=== PATIENT | male | born 1965 | race Asian ===

== ENCOUNTER 2019-03-25 07:30 | Inpatient (IN) | payer MEDICAID ==
[2019-03-25] MEDS ORDERED: Aspirin 81mg Chewable Tab PO STA (07:44)
[2019-03-25] MEDS ORDERED: Aspirin 81mg Chewable Tab ONE (07:47)
[2019-03-25 08:01] LABS: % BASOPHILS 0.3 % (0.0-2.0); % EOSINOPHILS 3.5 % (0.0-5.0); % LYMPHOCYTES 27.1 % (20.0-50.0); % MONOCYTES 6.3 % (2.0-10.0); % NEUTROPHILS 62.8 % (40.0-80.0); EOSINOPHILE ABSOLUTE 0.2 Th/cmm (0.1-0.4); HEMATOCRIT 37.7 % (41.0-60); HEMOGLOBIN 12.5 gm/dL (12-16); LYMPHOCYTE ABSOLUTE 1.2 Th/cmm (1.5-3.0); MEAN CELL VOLUME 84.8 fl (80-99); MEAN CORPUSCULAR HEMOGLOBIN 28.2 pg (26.0-30.0); MEAN CORPUSCULAR HGB CONC 33.3 pg (28.0-36.0); MEAN PLATELET VOLUME 6.8 fl; MONOCYTE ABSOLUTE 0.3 Th/cmm (0.3-1.0); NEUTROPHILE ABSOLUTE 2.7 Th/cmm (1.8-8.0); PLATELET COUNT 323 Th/cmm (150-400); RED BLOOD COUNT 4.45 Mil/cmm (4.30-5.70); WHITE BLOOD COUNT 4.4 Th/cmm (4.8-10.8)
[2019-03-25 08:08] LABS: PROTHROMBIN TIME (TEST) 10.4 SECONDS (9.5-11.5)
[2019-03-25 08:16] LABS: ALB/GLOB RATIO 1.9 (1.0-1.8); ALBUMIN 4.1 gm/dL (4.2-5.5); ALKALINE PHOSPHATASE 68 U/L (34-104); ANION GAP 12.6 (7.0-16.0); BILIRUBIN,TOTAL 0.4 mg/dL (0.3-1.0); BUN - UREA NITROGEN 31 mg/dL (7-25); CALCIUM SERUM 9.2 mg/dL (8.6-10.3); CARBON DIOXIDE 28.4 mEq/L (21.0-31.0); CHLORIDE 101 mEq/L (98-107); CHOLESTEROL 139 mg/dL (<200); CREATININE - SERUM 1.1 mg/dL (0.7-1.3); CREATININE KINASE 50 U/L (30-223); GFR AFRICAN-AMERICAN > 60.0 ml/min (>90); GFR NON AFRICAN-AMERICAN > 60.0 ml/min; GLUCOSE 160 mg/dL (70-105); HDL -HIGH DENSITY LIPOPROTEIN 35 mg/dL (23-92); SGOT 16 U/L (13-39); SGPT/ALT 34 U/L (7-52); SODIUM SERUM 139 mEq/L (136-145); TOTAL PROTEIN,SERUM 6.3 gm/dL (6.0-8.3); TRIGLYCERIDES 133 mg/dL (<150)
[2019-03-25] MEDS ORDERED: Potassium Chloride 20 mEq ER Tab PO ONE ×2 (08:23→08:27)
[2019-03-25 08:28] LABS: DDIMER QUANT < 100 ng/mL (100-400)
--- NOTE | 2019-03-25 09:19 | ED Physician Chart ---
ED Chief Complaint/HPI - Patient Information Date Seen:: 03/25/19 Time Seen:: 07:30 Chief Complaint:: Chest Pain History of Present Illness:: onset x 2 days of intermittent, exertional C/P; pt denies trauma, SOB, H/As, S/T , neck pain, cough, Abd. Pain, A/N/V/D/C, fever, chills, or urinary s/s Allergies:: Allergies Allergy/AdvReac Type Severity Reaction Status Date / Time No Known Allergies Allergy Verified 03/25/19 07:45 Vitals:: Vital Signs - 8 hr 03/25/19 03/25/19 07:30 07:43 Temp 98.2 F 98.3 F HR 74 72 RR 15 13 BP 112/72 112/72 O2 Sat % 97 Historian:: Patient Review:: Nurse's Note Reviewed, Old Chart Reviewed ED Review of Systems - Review of Systems General/Constitutional: No fever, No chills, No weight loss, No weakness, No diaphoresis, No edema, No loss of appetite Skin: No skin lesions, No rash, No bruising Head: No headache, No light-headedness Eyes: No loss of vision, No pain, No diplopia ENT: No earache, No nasal drainage, No sore throat, No tinnitus Neck: No neck pain, No swelling, No thyromegaly, No stiffness, No mass noted Cardio Vascular: No chest pain, No palpitations, No PND, No orthopnea, No edema Pulmonary: No SOB, No cough, No sputum, No wheezing GI: No nausea, No vomiting, No diarrhea, No pain, No melena, No hematochezia, No constipation, No hematemesis G/U: No dysuria, No frequency, No hematuria, No nacturia Musculoskeletal: No bone or joint pain, No back pain, No muscle pain Endocrine: No polyuria, No polydipsia Psychiatric: No prior psych history, No depression, No anxiety, No suicidal ideation, No homicidal ideation, No auditory hallucination, No visual hallucination Hematopoietic: No bruising, No lymphadenopathy Allergic/Immuno: No urticaria, No angioedema Neurological: No syncope, No focal symptoms, Weakness, No paresthesia, No headache, No seizure, No dizziness, No confusion, No vertigo ED Past Medical History - Past Medical History Obtainable: Yes Past Medical History: HTN, CVA/TIA Family History: HTN Social History: Non Smoker, No Alcohol, No Drug Use, Surgical History: None Psychiatricy History: None Medication: Reviewed Family Medical History - Family Member Mother History Unknown: Yes ED Physical Exam - Physical Examination General/Constitutional: Awake, Well-developed, well-nourished, Alert, No distress, GCS 15, Non-toxic appearing, Ambulatory Head: Atraumatic Eyes: Lids, conjuctiva normal, PERRL, EOMI Skin: Nl inspection, No rash, No skin lesions, No ecchymosis, Well hydrated, No lymphadenopathy ENMT: External ears, nose nl, TM canals nl, Nasal exam nl, Lips, teeth, gums nl , Oropharynx nl, Tonsils nl Neck: Nontender, Full ROM w/o pain, No JVD, No nuchal rigidity, No bruit, No mass, No stridor Other Neck comments:: supple; no meningeal signs; no cervical tenderness; no bruits Respiratory: Nl effort/Exclusion, Clear to Auscultation, No Wheeze/Rhonchi/Rales Cardio Vascular: RRR, No murmur, gallop, rubs, NL S1 S2, Carotid/Femoral/Distal pulses equal bilaterally GI: No tenderness/rebounding/guarding, No organomegaly, No hernia, Normal BS's, Nondistended, No mass/bruits, No McBurney tenderness, Rectum exam nl Other GI comments:: no pulsatile masses : No CVA tenderness Extremities: No tenderness or effusion, Full ROM, normal strength in all extremities, No edema, Normal digits & nails Neuro/Psych: Alert/oriented, DTR's symmetric, Normal sensory exam, Normal motor strength, Judgement/insight normal, Mood normal, Normal gait, No focal deficits Misc: Normal back, No paraspinal tenderness ED Labs/Radiology/EKG Results - Lab Results Results: Laboratory Tests 03/25/19 03/25/19 03/25/19 07:45 07:45 07:45 WBC 4.4 L RBC 4.45 Hgb 12.5 Hct 37.7 L MCV 84.8 MCH 28.2 MCHC Differential 33.3 RDW 12.0 Plt Count 323 MPV 6.8 Neutrophils % 62.8 Lymphocytes % 27.1 Monocytes % 6.3 Eosinophils % 3.5 Basophils % 0.3 PT 10.4 INR 1.00 D-Dimer < 100 L Sodium 139 Potassium 3.0 L Chloride 101 Carbon Dioxide 28.4 Anion Gap 12.6 BUN 31 H Creatinine 1.1 Est GFR ( Amer) > 60.0 Est GFR (Non-Af Amer) > 60.0 BUN/Creatinine Ratio 28.2 Glucose 160 H Calcium 9.2 Total Bilirubin 0.4 AST 16 ALT 34 Alkaline Phosphatase 68 Creatine Kinase 50 Troponin I B-Natriuretic Peptide Total Protein 6.3 Albumin 4.1 L Globulin 2.2 Albumin/Globulin Ratio 1.9 H Triglycerides 133 Cholesterol 139 LDL Cholesterol Direct 83 HDL Cholesterol 35 03/25/19 03/25/19 07:45 07:45 WBC RBC Hgb Hct MCV MCH MCHC Differential RDW Plt Count MPV Neutrophils % Lymphocytes % Monocytes % Eosinophils % Basophils % PT INR D-Dimer Sodium Potassium Chloride Carbon Dioxide Anion Gap BUN Creatinine Est GFR ( Amer) Est GFR (Non-Af Amer) BUN/Creatinine Ratio Glucose Calcium Total Bilirubin AST ALT Alkaline Phosphatase Creatine Kinase Troponin I < 0.01 L B-Natriuretic Peptide 7.2 Total Protein Albumin Globulin Albumin/Globulin Ratio Triglycerides Cholesterol LDL Cholesterol Direct HDL Cholesterol Comments:: Reviewed - EKG Interpretations Rate & Rhythm: NSR Comments:: non-specific st-t changes ED Septic Shock - . Is Septic Shock (SBP<90, OR Lactate>4 mmol\L) present?: No - <6hrs of presentation: Vital Signs: Vital Signs - 8 hr 03/25/19 03/25/19 07:30 07:43 Temp 98.2 F 98.3 F HR 74 72 RR 15 13 BP 112/72 112/72 O2 Sat % 97 ED Reassessment (Disposition) - Reassessment Reassessment Condition:: Improved - Diagnosis Diagnosis:: Chest Pain; Unstable Angina; Angina Pectoris; Hypokalemia; Dehydration - Aftercare/Follow up Instructions Aftercare/Follow-Up Instructions:: Counseled pt regarding lab results/diagnosis & need follow up, Counseled pt & family regarding lab results/diagnosis & need follow up - Patient Disposition Discharge/Transfer:: Acute Care w/in this hosp Accepting Physician:: Dr. Rolon Time Called:: 829 Time Responded:: 08:30 Admitted to:: Telemetry Spoke to:: Dr. Rolon Admitting Medical Physician:: Dr. Rolon Condition at Disposition:: Stable, Improved
[2019-03-25 09:30] LABS: URINE SOURCE RANDOM
[2019-03-25 09:32] LABS: URINE BILIRUBIN NEGATIVE (NEGATIVE); URINE BLOOD NEGATIVE (NEGATIVE); URINE GLUCOSE (UA) NEGATIVE (NEGATIVE); URINE KETONE NEGATIVE (NEGATIVE); URINE LEUKOCYTE ESTERASE NEGATIVE (NEGATIVE); URINE NITRATE NEGATIVE (NEGATIVE); URINE PROTEIN NEGATIVE (NEGATIVE); URINE UROBILINOGEN 0.2 E.U./dL (0.2 - 1.0)
[2019-03-25 09:57] LABS: URINE CLARITY CLEAR (CLEAR); URINE COLOR YELLOW; URINE MICROSCOPIC INDICATED? YES
[2019-03-25 10:00] LABS: URINE BACTERIA FEW /hpf (NONE SEEN); URINE EPITHELIAL CELLS NONE SEEN /lpf (FEW); URINE RBC NONE SEEN /hpf (0-5); URINE WBC 0-2 /hpf (0-5)
[2019-03-25] MEDS: Sodium Chloride 0.9% 1,000 ML IV SCH (10:05)
--- NOTE | 2019-03-25 10:21 | Diagnostic Imaging Report ---
CHEST X-RAY: AP view INDICATION: pain COMPARISON: None FINDINGS: There is elevation of the right hemidiaphragm. Chronic lung changes are noted. Increased bibasilar lung markings are noted. No focal consolidation or effusions. Heart size is mildly prominent. Degenerative changes of the spine are noted with mild scoliosis. IMPRESSION: Chronic lung changes and bibasal atelectatic changes. No focal consolidation identified. Mild cardiomegaly.
[2019-03-25] MEDS ORDERED: NIFEDIPINE 120 MG PO SCH (10:30)
--- NOTE | 2019-03-25 10:39 | History and Physical ---
History of Present Illness - HPI Chief Complaint: Chest pain HPI: Patient refer that last genao he started with chest pain reason why he came to ER. During ER evaluation was found Changes in the EKG and Hypokalemia. Vital Signs: Last Vital Signs Temp 97.4 F 03/25/19 09:20 Pulse 74 03/25/19 09:20 Resp 18 03/25/19 09:20 BP 123/82 03/25/19 09:20 Pulse Ox 99 03/25/19 09:20 Past Medical History Cardiovascular: Report: CAD, CHF, HTN Pulmonary: Report: No Pertinent Hx OIL PAINTER: Report: CVA, Other (Patient had a cerebral bleed in 02/15,) GI: Report: No Pertinent Hx Psych: Report: No Pertinent Hx Musculoskeletal: Report: Weakness Endocrine: Report: No Pertinent Hx Dermatology: Report: No Pertinent Hx - Past Surgical History Past Surgical History: No pertinent Hx Family Medical History - Family Member Mother History Unknown: Yes Social History Smoke: No Alcohol: None Drugs: None Lives: With Family Domestic Violence: Negative - Medications Home Medications: Home Medication Medication Instructions Recorded Type Atorvastatin Calcium [Lipitor] 40 mg PO DAILY 03/25/19 History Carvedilol 12.5 mg PO BID 03/25/19 History Hydralazine [Apresoline*] 50 mg PO Q8H 03/25/19 History Hydrochlorothiazide 12.5 mg PO BID 03/25/19 History Lisinopril 40 mg PO DAILY 03/25/19 History Nifedipine [Nifedipine ER] 120 mg PO DAILY 03/25/19 History - Allergies Allergies/Adverse Reactions: Allergies Allergy/AdvReac Type Severity Reaction Status Date / Time No Known Allergies Allergy Verified 03/25/19 07:45 Review of Systems - Review of Systems Constitutional: Report: Weakness Eyes: Report: No Significant ENT: Report: No Significant Respiratory: Report: No Significant Cardiovascular: Report: Chest Pain Gastrointestinal: Report: No Significant Genitourinary: Report: No Significant Musculoskeletal: Report: Other (General muscle weakness) Skin: Report: No Significant Neurological: Report: Weakness Physical Exam - Physical Exam HEENT: Report: Ears Nose Throat within normal limits Neck: Report: Within normal limits Cardiovascular Systems: Report: Regular, Rate and Rhythm Respiratory: Report: Breath Sounds are within normal limits Abdomen: Report: Non-tender to palpation Back: Report: Inspection of back is within normal limits. Extremities: Report: Other (Patient walks with a walker) Skin: Report: Color of skin is within normal limits Neuro/Psych: Report: Mood affect is within normal limits - Lab Results All Lab Results last 24 hours: Laboratory Results - last 24 hr 03/25/19 03/25/19 03/25/19 07:45 07:45 07:45 WBC 4.4 L RBC 4.45 Hgb 12.5 Hct 37.7 L MCV 84.8 MCH 28.2 MCHC Differential 33.3 RDW 12.0 Plt Count 323 MPV 6.8 Neutrophils % 62.8 Lymphocytes % 27.1 Monocytes % 6.3 Eosinophils % 3.5 Basophils % 0.3 PT 10.4 INR 1.00 D-Dimer < 100 L Sodium 139 Potassium 3.0 L Chloride 101 Carbon Dioxide 28.4 Anion Gap 12.6 BUN 31 H Creatinine 1.1 Est GFR ( Amer) > 60.0 Est GFR (Non-Af Amer) > 60.0 BUN/Creatinine Ratio 28.2 Glucose 160 H Calcium 9.2 Total Bilirubin 0.4 AST 16 ALT 34 Alkaline Phosphatase 68 Creatine Kinase 50 Troponin I B-Natriuretic Peptide Total Protein 6.3 Albumin 4.1 L Globulin 2.2 Albumin/Globulin Ratio 1.9 H Triglycerides 133 Cholesterol 139 LDL Cholesterol Direct 83 HDL Cholesterol 35 Urine Source Urine Color Urine Clarity Urine pH Ur Specific Elsie Urine Protein Urine Glucose (UA) Urine Ketones Urine Blood Urine Nitrate Urine Bilirubin Urine Urobilinogen Ur Leukocyte Esterase Urine RBC Urine WBC Ur Epithelial Cells Urine Bacteria 03/25/19 03/25/19 03/25/19 07:45 07:45 09:30 WBC RBC Hgb Hct MCV MCH MCHC Differential RDW Plt Count MPV Neutrophils % Lymphocytes % Monocytes % Eosinophils % Basophils % PT INR D-Dimer Sodium Potassium Chloride Carbon Dioxide Anion Gap BUN Creatinine Est GFR ( Amer) Est GFR (Non-Af Amer) BUN/Creatinine Ratio Glucose Calcium Total Bilirubin AST ALT Alkaline Phosphatase Creatine Kinase Troponin I < 0.01 L B-Natriuretic Peptide 7.2 Total Protein Albumin Globulin Albumin/Globulin Ratio Triglycerides Cholesterol LDL Cholesterol Direct HDL Cholesterol Urine Source RANDOM Urine Color YELLOW Urine Clarity CLEAR Urine pH 6.0 Ur Specific Elsie 1.015 Urine Protein NEGATIVE Urine Glucose (UA) NEGATIVE Urine Ketones NEGATIVE Urine Blood NEGATIVE Urine Nitrate NEGATIVE Urine Bilirubin NEGATIVE Urine Urobilinogen 0.2 Ur Leukocyte Esterase NEGATIVE Urine RBC NONE SEEN Urine WBC 0-2 Ur Epithelial Cells NONE SEEN Urine Bacteria FEW - Assessment Assessment: Patient is awake, alert, calm, in no acute distress. Patient has general muscle weakness secondary to the cerebral bleed that he had in 02/15. Dx: Atypical chest pain, HTN, Hypokalemia, Hx of Cerebral bleed, General muscle weakness - Plan Plan: Patient is in IV NS, continue with home meds, diet low in Na, K already given. Consult with Cardio requested. Will continue to monitor.
--- NOTE | 2019-03-25 11:34 | Diagnostic Imaging Report ---
Head CT without intravenous contrast Indication: History of hemorrhage Comparison: None Technique: Axial images were obtained from the vertex to the skull base without IV contrast. Coronal reconstructions were made. Total DLP: [id number], [id number] FINDINGS: Images of the brain obtained without contrast demonstrate moderate density seen along the right lateral ventricular body extending the right periventricular region. This area measures 2 x 1.2 cm. No significant mass effect. No midline shift. Multifocal old bilateral periventricular infarcts are noted. The basal cisterns are patent. No hydrocephalus. No evidence of skull fracture or focal soft tissue swelling. Atrophy is noted. Atherosclerosis is noted. The paranasal sinuses demonstrate mild mucosal thickening. IMPRESSION: Isodense area measuring 2 x 1.2 cm along along the posterior body of the right lateral ventricle extending to the adjacent periventricular region possibly representing subacute hemorrhage. Please correlate with clinical history and old exams. No mass effect or midline shift. Follow-up recommended to ensure resolution Diffuse white matter disease possibly due to old ischemic changes with multifocal old lacunar infarcts Atrophy. Results were relayed to the referring team on 03/25/2019 at 11:30 AM.
[2019-03-25 11:57] VITALS: BP 123/87
--- NOTE | 2019-03-25 16:14 | General Progress Note ---
Subjective - Review of Systems Service Date: 03/25/19 Subjective: Patient complaining of generalized weakness no chest pain today Objective - Results Result Diagrams: 03/25/19 07:45 03/25/19 07:45 Recent Labs: Laboratory Last Values WBC 4.4 Th/cmm (4.8-10.8) L 03/25/19 07:45 RBC 4.45 Mil/cmm (4.30-5.70) 03/25/19 07:45 Hgb 12.5 gm/dL (12-16) 03/25/19 07:45 Hct 37.7 % (41.0-60) L 03/25/19 07:45 MCV 84.8 fl (80-99) 03/25/19 07:45 MCH 28.2 pg (26.0-30.0) 03/25/19 07:45 MCHC Differential 33.3 pg (28.0-36.0) 03/25/19 07:45 RDW 12.0 % (11.5-20.0) 03/25/19 07:45 Plt Count 323 Th/cmm (150-400) 03/25/19 07:45 MPV 6.8 fl 03/25/19 07:45 Neutrophils % 62.8 % (40.0-80.0) 03/25/19 07:45 Lymphocytes % 27.1 % (20.0-50.0) 03/25/19 07:45 Monocytes % 6.3 % (2.0-10.0) 03/25/19 07:45 Eosinophils % 3.5 % (0.0-5.0) 03/25/19 07:45 Basophils % 0.3 % (0.0-2.0) 03/25/19 07:45 PT 10.4 SECONDS (9.5-11.5) 03/25/19 07:45 INR 1.00 (0.5-1.4) 03/25/19 07:45 D-Dimer < 100 ng/mL (100-400) L 03/25/19 07:45 Sodium 139 mEq/L (136-145) 03/25/19 07:45 Potassium 3.0 mEq/L (3.5-5.1) L 03/25/19 07:45 Chloride 101 mEq/L (98-107) 03/25/19 07:45 Carbon Dioxide 28.4 mEq/L (21.0-31.0) 03/25/19 07:45 Anion Gap 12.6 (7.0-16.0) 03/25/19 07:45 BUN 31 mg/dL (7-25) H 03/25/19 07:45 Creatinine 1.1 mg/dL (0.7-1.3) 03/25/19 07:45 Est GFR ( Amer) > 60.0 ml/min (>90) 03/25/19 07:45 Est GFR (Non-Af Amer) > 60.0 ml/min 03/25/19 07:45 BUN/Creatinine Ratio 28.2 03/25/19 07:45 Glucose 160 mg/dL (70-105) H 03/25/19 07:45 POC Glucose 120 MG/DL (70 - 105) H 03/25/19 09:25 Calcium 9.2 mg/dL (8.6-10.3) 03/25/19 07:45 Total Bilirubin 0.4 mg/dL (0.3-1.0) 03/25/19 07:45 AST 16 U/L (13-39) 03/25/19 07:45 ALT 34 U/L (7-52) 03/25/19 07:45 Alkaline Phosphatase 68 U/L (34-104) 03/25/19 07:45 Creatine Kinase 50 U/L (30-223) 03/25/19 07:45 Troponin I < 0.01 ng/mL (0.01-0.05) L 03/25/19 07:45 B-Natriuretic Peptide 7.2 pg/mL (5.0-100.0) 03/25/19 07:45 Total Protein 6.3 gm/dL (6.0-8.3) 03/25/19 07:45 Albumin 4.1 gm/dL (4.2-5.5) L 03/25/19 07:45 Globulin 2.2 gm/dL 03/25/19 07:45 Albumin/Globulin Ratio 1.9 (1.0-1.8) H 03/25/19 07:45 Triglycerides 133 mg/dL (<150) 03/25/19 07:45 Cholesterol 139 mg/dL (<200) 03/25/19 07:45 LDL Cholesterol Direct 83 mg/dL (75-193) 03/25/19 07:45 HDL Cholesterol 35 mg/dL (23-92) 03/25/19 07:45 Urine Source RANDOM 03/25/19 09:30 Urine Color YELLOW 03/25/19 09:30 Urine Clarity CLEAR (CLEAR) 03/25/19 09:30 Urine pH 6.0 (4.6 - 8.0) 03/25/19 09:30 Ur Specific Strang 1.015 (1.005-1.030) 03/25/19 09:30 Urine Protein NEGATIVE mg/dL (NEGATIVE) 03/25/19 09:30 Urine Glucose (UA) NEGATIVE mg/dL (NEGATIVE) 03/25/19 09:30 Urine Ketones NEGATIVE mg/dL (NEGATIVE) 03/25/19 09:30 Urine Blood NEGATIVE (NEGATIVE) 03/25/19 09:30 Urine Nitrate NEGATIVE (NEGATIVE) 03/25/19 09:30 Urine Bilirubin NEGATIVE (NEGATIVE) 03/25/19 09:30 Urine Urobilinogen 0.2 E.U./dL (0.2 - 1.0) 03/25/19 09:30 Ur Leukocyte Esterase NEGATIVE (NEGATIVE) 03/25/19 09:30 Urine RBC NONE SEEN /hpf (0-5) 03/25/19 09:30 Urine WBC 0-2 /hpf (0-5) 03/25/19 09:30 Ur Epithelial Cells NONE SEEN /lpf (FEW) 03/25/19 09:30 Urine Bacteria FEW /hpf (NONE SEEN) 03/25/19 09:30 - Physical Exam Vitals and I&O: Vital Signs Temp 97.5 F 03/25/19 12:00 Pulse 68 03/25/19 12:00 Resp 18 03/25/19 12:00 BP 129/80 03/25/19 12:00 Pulse Ox 98 03/25/19 12:00 Intake & Output 03/24/19 03/25/19 03/25/19 18:59 06:59 18:59 Weight (lbs) 76.204 kg Other: Weight Source Bedscale Active Medications: Current Medications Atorvastatin Calcium (Lipitor) 40 mg PO DAILY KATARINA Stop: 05/24/19 10:29 Last Admin: 03/25/19 11:34 Dose: 40 mg Carvedilol (Coreg) 12.5 mg PO BID KATARINA Stop: 05/24/19 10:29 Last Admin: 03/25/19 11:34 Dose: 12.5 mg Hydralazine HCl (Apresoline) 50 mg PO Q8H KATARINA Stop: 05/24/19 10:29 Last Admin: 03/25/19 11:35 Dose: 50 mg Hydrochlorothiazide (Hctz) 12.5 mg PO BID KATARINA Stop: 05/24/19 10:29 Last Admin: 03/25/19 11:33 Dose: 12.5 mg Sodium Chloride (Nacl 0.9%) 1,000 mls @ 70 mls/hr IV .[id number] KATARINA Stop: 05/24/19 09:47 Last Admin: 03/25/19 10:05 Dose: 70 mls/hr Lisinopril (Zestril) 40 mg PO DAILY KATARINA Stop: 05/24/19 10:29 Last Admin: 03/25/19 11:35 Dose: 40 mg Nifedipine (Procardia Xl) 60 mg PO BID [facility] Stop: 05/24/19 16:59 General: Alert, No acute distress HEENT: Mucous membr. moist/pink Neck: Supple, JVD, +2 carotid pulse wo bruit Cardiovascular: Regular rate, Normal S1, Normal S2, Systolic murmurs Lungs: Clear to auscultation, Normal air movement Abdomen: Bowel sounds, Soft, Other (no organomegaly) Extremities: Pulses Neurological: Strength at 5/5 X4 ext, Reflexes 2+ Assessment/Plan - Assessment Assessment: Chest pain unlikely coronary artery disease troponin level normal Hypokalemia Hypertension CVA with intracerebral bleed 02/15/2019 Hyperlipidemia - Plan Plan: We will get echocardiogram repeat troponin level
[2019-03-25] MEDS: NIFEdipine 30 mg ER Tab PO SCH (16:29)
--- NOTE | 2019-03-25 18:57 | Consultation ---
DATE OF CONSULTATION: 03/25/[address] Rolon. HISTORY AND PHYSICAL: This is a 53-year-old male patient who had chest pain. Following this, the patient came to the Emergency Room. The patient was found to have hypertension with hypokalemia. The patient has a recent hemorrhagic stroke on 02/15/2019. The patient complained of generalized weakness. PAST MEDICAL HISTORY: Hypokalemia, hypertension, CVA with intracerebral bleed, generalized weakness, hyperlipidemia. FAMILY HISTORY: Unremarkable. SOCIAL HISTORY: No history of smoking, alcohol abuse. ALLERGIES: No known allergies. PHYSICAL EXAMINATION: VITAL SIGNS: Blood pressure 123/87, pulse 70, respirations 20. HEENT: Head: Normocephalic. No lumps or bumps. Eyes: Pupils equal, reactive to light. Fundi show AV nicking. Sclerae white. Conjunctivae pink. NECK: Carotid 2+. Normal upstroke. JVD flat. Thyroid not palpable. Lymph nodes not palpable. CHEST: Shows increased AP diameter. No kyphosis, scoliosis. LUNGS: Bilateral bronchovesicular breath sounds. HEART: PMI fifth intercostal space with lateral to midclavicular line. S1, S2. No S3, S4. Soft systolic murmur. ABDOMEN: Soft. Liver, spleen not palpable. No organomegaly. Bowel sounds active. NEUROLOGIC: Generalized weakness. EXTREMITIES: No pedal edema. LABORATORY AND DIAGNOSTIC DATA: The patient has hypokalemia, potassium 3.0. Albumin 4.1. Troponin level normal. CLINICAL IMPRESSION: 1. Chest pain, unlikely coronary artery disease. 2. Hypokalemia, hypertension, cerebrovascular accident with intracerebral bleed, hyperlipidemia. PLAN: At the present time, we will get echocardiogram, troponin level. Control blood pressure. JOB# [id number]
[2019-03-26 04:49] LABS: % BASOPHILS 1.8 % (0.0-2.0); % LYMPHOCYTES 34.2 % (20.0-50.0); % MONOCYTES 6.9 % (2.0-10.0); % NEUTROPHILS 54.1 % (40.0-80.0); BASOPHILE ABSOLUTE 0.1 Th/cumm (0-0.2); EOSINOPHILE ABSOLUTE 0.1 Th/cmm (0.1-0.4); HEMATOCRIT 38.5 % (41.0-60); HEMOGLOBIN 12.5 gm/dL (12-16); LYMPHOCYTE ABSOLUTE 1.5 Th/cmm (1.5-3.0); MEAN CELL VOLUME 85.5 fl (80-99); MEAN CORPUSCULAR HEMOGLOBIN 27.8 pg (26.0-30.0); MEAN CORPUSCULAR HGB CONC 32.5 pg (28.0-36.0); MEAN PLATELET VOLUME 7.2 fl; MONOCYTE ABSOLUTE 0.3 Th/cmm (0.3-1.0); NEUTROPHILE ABSOLUTE 2.5 Th/cmm (1.8-8.0); PLATELET COUNT 275 Th/cmm (150-400); RED CELL DISTRIBUTION WIDTH 12.2 % (11.5-20.0); WHITE BLOOD COUNT 4.5 Th/cmm (4.8-10.8)
[2019-03-26 06:09] LABS: ALB/GLOB RATIO 1.9 (1.0-1.8); ALBUMIN 3.9 gm/dL (4.2-5.5); ALKALINE PHOSPHATASE 65 U/L (34-104); ANION GAP 13.2 (7.0-16.0); BILIRUBIN,TOTAL 0.5 mg/dL (0.3-1.0); BUN - UREA NITROGEN 25 mg/dL (7-25); CARBON DIOXIDE 26.9 mEq/L (21.0-31.0); CHLORIDE 103 mEq/L (98-107); CREATININE - SERUM 1.1 mg/dL (0.7-1.3); GFR AFRICAN-AMERICAN > 60.0 ml/min (>90); GFR NON AFRICAN-AMERICAN > 60.0 ml/min; GLUCOSE 114 mg/dL (70-105); POTASSIUM SERUM 3.1 mEq/L (3.5-5.1); SGOT 15 U/L (13-39); SGPT/ALT 31 U/L (7-52); SODIUM SERUM 140 mEq/L (136-145)
[2019-03-26] MEDS: NIFEdipine 30 mg ER Tab PO SCH ×2 (08:24→16:18)
[2019-03-26] MEDS: Sodium Chloride 0.9% 1,000 ML IV SCH ×3 (08:24→23:28)
--- NOTE | 2019-03-26 08:55 | General Progress Note ---
Subjective - Review of Systems Service Date: 03/26/19 Subjective: I am better Objective - Results Result Diagrams: 03/27/19 04:45 03/27/19 04:45 Recent Labs: Laboratory Last Values WBC 4.5 Th/cmm (4.8-10.8) L 03/26/19 04:20 RBC 4.50 Mil/cmm (4.30-5.70) 03/26/19 04:20 Hgb 12.5 gm/dL (12-16) 03/26/19 04:20 Hct 38.5 % (41.0-60) L 03/26/19 04:20 MCV 85.5 fl (80-99) 03/26/19 04:20 MCH 27.8 pg (26.0-30.0) 03/26/19 04:20 MCHC Differential 32.5 pg (28.0-36.0) 03/26/19 04:20 RDW 12.2 % (11.5-20.0) 03/26/19 04:20 Plt Count 275 Th/cmm (150-400) 03/26/19 04:20 MPV 7.2 fl 03/26/19 04:20 Neutrophils % 54.1 % (40.0-80.0) 03/26/19 04:20 Lymphocytes % 34.2 % (20.0-50.0) 03/26/19 04:20 Monocytes % 6.9 % (2.0-10.0) 03/26/19 04:20 Eosinophils % 3.0 % (0.0-5.0) 03/26/19 04:20 Basophils % 1.8 % (0.0-2.0) 03/26/19 04:20 PT 10.4 SECONDS (9.5-11.5) 03/25/19 07:45 INR 1.00 (0.5-1.4) 03/25/19 07:45 D-Dimer < 100 ng/mL (100-400) L 03/25/19 07:45 Sodium 140 mEq/L (136-145) 03/26/19 04:20 Potassium 3.1 mEq/L (3.5-5.1) L 03/26/19 04:20 Chloride 103 mEq/L (98-107) 03/26/19 04:20 Carbon Dioxide 26.9 mEq/L (21.0-31.0) 03/26/19 04:20 Anion Gap 13.2 (7.0-16.0) 03/26/19 04:20 BUN 25 mg/dL (7-25) 03/26/19 04:20 Creatinine 1.1 mg/dL (0.7-1.3) 03/26/19 04:20 Est GFR ( Amer) > 60.0 ml/min (>90) 03/26/19 04:20 Est GFR (Non-Af Amer) > 60.0 ml/min 03/26/19 04:20 BUN/Creatinine Ratio 22.7 03/26/19 04:20 Glucose 114 mg/dL (70-105) H 03/26/19 04:20 POC Glucose 120 MG/DL (70 - 105) H 03/25/19 09:25 Calcium 9.0 mg/dL (8.6-10.3) 03/26/19 04:20 Total Bilirubin 0.5 mg/dL (0.3-1.0) 03/26/19 04:20 AST 15 U/L (13-39) 03/26/19 04:20 ALT 31 U/L (7-52) 03/26/19 04:20 Alkaline Phosphatase 65 U/L (34-104) 03/26/19 04:20 Creatine Kinase 50 U/L (30-223) 03/25/19 07:45 Troponin I < 0.01 ng/mL (0.01-0.05) L 03/26/19 04:20 B-Natriuretic Peptide 7.2 pg/mL (5.0-100.0) 03/25/19 07:45 Total Protein 6.0 gm/dL (6.0-8.3) 03/26/19 04:20 Albumin 3.9 gm/dL (4.2-5.5) L 03/26/19 04:20 Globulin 2.1 gm/dL 03/26/19 04:20 Albumin/Globulin Ratio 1.9 (1.0-1.8) H 03/26/19 04:20 Triglycerides 133 mg/dL (<150) 03/25/19 07:45 Cholesterol 139 mg/dL (<200) 03/25/19 07:45 LDL Cholesterol Direct 83 mg/dL (75-193) 03/25/19 07:45 HDL Cholesterol 35 mg/dL (23-92) 03/25/19 07:45 Urine Source RANDOM 03/25/19 09:30 Urine Color YELLOW 03/25/19 09:30 Urine Clarity CLEAR (CLEAR) 03/25/19 09:30 Urine pH 6.0 (4.6 - 8.0) 03/25/19 09:30 Ur Specific [place] 1.015 (1.005-1.030) 03/25/19 09:30 Urine Protein NEGATIVE mg/dL (NEGATIVE) 03/25/19 09:30 Urine Glucose (UA) NEGATIVE mg/dL (NEGATIVE) 03/25/19 09:30 Urine Ketones NEGATIVE mg/dL (NEGATIVE) 03/25/19 09:30 Urine Blood NEGATIVE (NEGATIVE) 03/25/19 09:30 Urine Nitrate NEGATIVE (NEGATIVE) 03/25/19 09:30 Urine Bilirubin NEGATIVE (NEGATIVE) 03/25/19 09:30 Urine Urobilinogen 0.2 E.U./dL (0.2 - 1.0) 03/25/19 09:30 Ur Leukocyte Esterase NEGATIVE (NEGATIVE) 03/25/19 09:30 Urine RBC NONE SEEN /hpf (0-5) 03/25/19 09:30 Urine WBC 0-2 /hpf (0-5) 03/25/19 09:30 Ur Epithelial Cells NONE SEEN /lpf (FEW) 03/25/19 09:30 Urine Bacteria FEW /hpf (NONE SEEN) 03/25/19 09:30 - Physical Exam Vitals and I&O: Vital Signs Temp 97.2 F 03/26/19 07:45 Pulse 85 03/26/19 08:24 Resp 19 03/26/19 07:45 BP 119/81 03/26/19 08:24 Pulse Ox 99 03/26/19 07:45 Intake & Output 03/25/19 03/26/19 03/26/19 18:59 06:59 18:59 Intake Total 1200 Balance 1200 Weight (lbs) 76.204 kg 76.204 kg Intake: Intake, IV Amount 1000 Sodium Chloride 0.9% 1, 1000 000 ml @ 70 mls/hr IV . [id number] [facility] Rx#:[id number] Oral 200 Other: # Voids 3 Weight Source Bedscale Bedscale Active Medications: Current Medications Acetaminophen (Tylenol) 650 mg PO Q4H PRN PRN Reason: Pain (Mild) Stop: 05/25/19 02:58 Last Admin: 03/26/19 03:09 Dose: 650 mg Atorvastatin Calcium (Lipitor) 40 mg PO DAILY [facility] Stop: 05/24/19 10:29 Last Admin: 03/26/19 08:24 Dose: 40 mg Carvedilol (Coreg) 12.5 mg PO BID [facility] Stop: 05/24/19 10:29 Last Admin: 03/25/19 16:28 Dose: 12.5 mg Hydralazine HCl (Apresoline) 50 mg PO Q8HR [facility] Stop: 05/24/19 10:29 Last Admin: 03/26/19 04:14 Dose: 50 mg Sodium Chloride (Nacl 0.9%) 1,000 mls @ 70 mls/hr IV .[id number] [facility] Stop: 05/24/19 09:47 Last Admin: 03/26/19 08:24 Dose: 70 mls/hr Nifedipine (Procardia Xl) 60 mg PO BID [facility] Stop: 05/24/19 16:59 Last Admin: 03/26/19 08:24 Dose: 60 mg Potassium Chloride (Klor-Con) 40 meq PO DAILY [facility] Stop: 05/25/19 08:59 General: Alert, No acute distress HEENT: Mucous membr. moist/pink Neck: Supple, JVD, +2 carotid pulse wo bruit Cardiovascular: Regular rate Lungs: Clear to auscultation, Normal air movement Abdomen: Bowel sounds, Soft, Other (no organomegaly) Extremities: Pulses, Other (General muiscle weakness) Neurological: Other (Non ambulatory at this moment, General muscle weakness.) Skin: Other (warm and dry) Psych/Mental Status: Mental status NL Assessment/Plan - Assessment Assessment: Patient is awake, alert, calm, in no acute distress. Patient has general muscle weakness secondary to the cerebral bleed that he had in 02/15. Head CT shows subacute cerebral hemorrhage. Dx: Atypical chest pain, HTN, Hypokalemia, Hx of Cerebral bleed, General muscle weakness - Plan Plan: Patient is in IV NS, continue with home meds, diet low in Na, K replaced. follow by cardio, Consult with neurology requested. Will continue to monitor.
[2019-03-26] MEDS: Potassium Chloride 20 mEq ER Tab PO SCH (09:27)
[2019-03-27 05:24] LABS: BASOPHILE ABSOLUTE 0.1 Th/cumm (0-0.2); EOSINOPHILE ABSOLUTE 0.2 Th/cmm (0.1-0.4); HEMOGLOBIN 12.5 gm/dL (12-16); MONOCYTE ABSOLUTE 0.4 Th/cmm (0.3-1.0); NEUTROPHILE ABSOLUTE 3.2 Th/cmm (1.8-8.0)
[2019-03-27 05:38] LABS: % BASOPHILS 1.2 % (0.0-2.0); % EOSINOPHILS 2.8 % (0.0-5.0); % LYMPHOCYTES 29.1 % (20.0-50.0); % MONOCYTES 8.1 % (2.0-10.0); % NEUTROPHILS 58.8 % (40.0-80.0); HEMATOCRIT 38.2 % (41.0-60); LYMPHOCYTE ABSOLUTE 1.6 Th/cmm (1.5-3.0); MEAN CELL VOLUME 85.1 fl (80-99); MEAN CORPUSCULAR HEMOGLOBIN 27.8 pg (26.0-30.0); MEAN CORPUSCULAR HGB CONC 32.7 pg (28.0-36.0); MEAN PLATELET VOLUME 7.2 fl; PLATELET COUNT 252 Th/cmm (150-400); RED CELL DISTRIBUTION WIDTH 12.2 % (11.5-20.0); WHITE BLOOD COUNT 5.5 Th/cmm (4.8-10.8)
[2019-03-27 05:46] LABS: ALB/GLOB RATIO 1.7 (1.0-1.8); ALKALINE PHOSPHATASE 65 U/L (34-104); ANION GAP 11.1 (7.0-16.0); BILIRUBIN,TOTAL 0.5 mg/dL (0.3-1.0); BUN - UREA NITROGEN 16 mg/dL (7-25); CALCIUM SERUM 8.9 mg/dL (8.6-10.3); CARBON DIOXIDE 25.2 mEq/L (21.0-31.0); CHLORIDE 106 mEq/L (98-107); CREATININE - SERUM 0.9 mg/dL (0.7-1.3); GFR AFRICAN-AMERICAN > 60.0 ml/min (>90); GFR NON AFRICAN-AMERICAN > 60.0 ml/min; GLUCOSE 110 mg/dL (70-105); POTASSIUM SERUM 3.3 mEq/L (3.5-5.1); SGOT 15 U/L (13-39); SGPT/ALT 30 U/L (7-52); SODIUM SERUM 139 mEq/L (136-145); TOTAL PROTEIN,SERUM 6.4 gm/dL (6.0-8.3)
[2019-03-27] MEDS: Sodium Chloride 0.9% 1,000 ML IV SCH (05:54)
[2019-03-27] MEDS: Potassium Chloride 20 mEq ER Tab PO SCH (08:20)
[2019-03-27] MEDS: NIFEdipine 30 mg ER Tab PO SCH (08:20)
--- NOTE | 2019-03-27 08:43 | Discharge Summary ---
General Discharge Summary - Discharge Summary Date of Admission: 03/25/19 Admitting Diagnosis: Atypical chest pain, HTN, Hypokalemia, Hx of cerebral bleed , General muscle Discharge Date: 03/27/19 Discharge Diagnosis: Atypical chest pain improved, HTN on control, Hypokalemia corrected, Hx of subacute cerebral hemorrhage stable, General muscle weakness. Laboratory Findings: Laboratory Results - last 24 hr 03/27/19 03/27/19 03/27/19 04:45 04:45 04:45 WBC 5.5 RBC 4.50 Hgb 12.5 Hct 38.2 L MCV 85.1 MCH 27.8 MCHC Differential 32.7 RDW 12.2 Plt Count 252 MPV 7.2 Neutrophils % 58.8 Lymphocytes % 29.1 Monocytes % 8.1 Eosinophils % 2.8 Basophils % 1.2 Sodium 139 Potassium 3.3 L Chloride 106 Carbon Dioxide 25.2 Anion Gap 11.1 BUN 16 Creatinine 0.9 Est GFR ( Amer) > 60.0 Est GFR (Non-Af Amer) > 60.0 BUN/Creatinine Ratio 17.8 Glucose 110 H Calcium 8.9 Total Bilirubin 0.5 AST 15 ALT 30 Alkaline Phosphatase 65 Total Protein 6.4 Albumin 4.0 L Globulin 2.4 Albumin/Globulin Ratio 1.7 TSH 0.73 Hospital Course: Patient responded to treatment, he improved. Treatment: Patient was started in IV NS, continue with Home medications, K replaced, follow by cardiology and neurology. Condition at Discharge: Stable Disposition: HOME HEALTH SERVICE Home Medications: Home Medication Medication Instructions Recorded Type Atorvastatin Calcium [Lipitor] 40 mg PO DAILY 03/25/19 History Carvedilol 12.5 mg PO BID 03/25/19 History Hydralazine [Apresoline*] 50 mg PO Q8H 03/25/19 History Nifedipine [Nifedipine ER] 120 mg PO DAILY 03/25/19 History Inpatient Medications: Current Medications Acetaminophen (Tylenol) 650 mg PO Q4H PRN PRN Reason: Pain (Mild) Stop: 05/25/19 02:58 Last Admin: 03/26/19 03:09 Dose: 650 mg Atorvastatin Calcium (Lipitor) 40 mg PO DAILY [facility] Stop: 05/24/19 10:29 Last Admin: 03/27/19 08:19 Dose: 40 mg Carvedilol (Coreg) 12.5 mg PO BID [facility] Stop: 05/24/19 10:29 Last Admin: 03/27/19 08:21 Dose: 12.5 mg Docusate Sodium (Colace) 100 mg PO BID [facility] Stop: 05/25/19 20:14 Last Admin: 03/27/19 08:19 Dose: 100 mg Hydralazine HCl (Apresoline) 50 mg PO Q8HR [facility] Stop: 05/24/19 10:29 Last Admin: 03/27/19 05:58 Dose: 50 mg Sodium Chloride (Nacl 0.9%) 1,000 mls @ 70 mls/hr IV .[id number] [facility] Stop: 05/24/19 09:47 Last Admin: 03/27/19 05:54 Dose: Not Given Nifedipine (Procardia Xl) 60 mg PO BID [facility] Stop: 05/24/19 16:59 Last Admin: 03/27/19 08:20 Dose: 60 mg Potassium Chloride (Klor-Con) 40 meq PO DAILY [facility] Stop: 05/25/19 08:59 Last Admin: 03/27/19 08:20 Dose: 40 meq Activity: As Tolerated Discharge Diet: 2 Gram Sodium Consults and Follow-Up: ASAD LUTZ [Other] Wong Rolon [Primary Care Provider] - Consulting Speciality: Neurology, Other (PCP) Instructions: Chest Wall Pain, [id number]
--- NOTE | 2019-03-27 09:28 | Consultation ---
DATE OF CONSULTATION: 03/26/2019 NEUROLOGY CONSULTATION HISTORY OF PRESENT ILLNESS: The patient is a 53-year-old. The patient complained of chest pain. The patient's neurological consultation was for history of intracranial bleed. He was ____ [place] recently with right-sided intracranial bleed. There is some left-sided weakness. He walks with a walker. PAST MEDICAL HISTORY: Hypertension, CHF, coronary artery disease, and recent intracranial bleed. SOCIAL HISTORY: Does not smoke or drink. PAST SURGICAL HISTORY: None recently. MEDICATIONS: Atorvastatin, Coreg, hydralazine, lisinopril, and hydrochlorothiazide. ALLERGIES: None known. REVIEW OF SYSTEMS: Twelve point negative except for above. PHYSICAL EXAMINATION: VITAL SIGNS: Temperature 97.6, blood pressure 119/81, pulse is 85. NECK: Supple. No neck bruits. CARDIOVASCULAR: Normal heart sounds. LUNGS: Clear. NEUROLOGIC: The patient is awake and alert. The patient will answer questions. Speech is somewhat dysarthric. The patient has no marked facial paralysis. Weakness on the left side. Weakness in the left leg. INVESTIGATIONS: CT scan of the head, subacute in the right periventricular region. No shift. IMPRESSION: 1. Intracranial bleed, subacute. 2. Hypertension. 3. Chest pain. PLAN: At this time, neurologically monitor the patient. Make sure of blood pressure control. INR, PTT is okay. JOB# [id number]
--- NOTE | 2019-03-27 14:39 | General Progress Note ---
Subjective - Review of Systems Service Date: 03/27/19 Subjective: Patient complaining of generalized weakness no chest pain today Objective - Results Result Diagrams: 03/27/19 04:45 03/27/19 04:45 Recent Labs: Laboratory Last Values WBC 5.5 Th/cmm (4.8-10.8) 03/27/19 04:45 RBC 4.50 Mil/cmm (4.30-5.70) 03/27/19 04:45 Hgb 12.5 gm/dL (12-16) 03/27/19 04:45 Hct 38.2 % (41.0-60) L 03/27/19 04:45 MCV 85.1 fl (80-99) 03/27/19 04:45 MCH 27.8 pg (26.0-30.0) 03/27/19 04:45 MCHC Differential 32.7 pg (28.0-36.0) 03/27/19 04:45 RDW 12.2 % (11.5-20.0) 03/27/19 04:45 Plt Count 252 Th/cmm (150-400) 03/27/19 04:45 MPV 7.2 fl 03/27/19 04:45 Neutrophils % 58.8 % (40.0-80.0) 03/27/19 04:45 Lymphocytes % 29.1 % (20.0-50.0) 03/27/19 04:45 Monocytes % 8.1 % (2.0-10.0) 03/27/19 04:45 Eosinophils % 2.8 % (0.0-5.0) 03/27/19 04:45 Basophils % 1.2 % (0.0-2.0) 03/27/19 04:45 PT 10.4 SECONDS (9.5-11.5) 03/25/19 07:45 INR 1.00 (0.5-1.4) 03/25/19 07:45 D-Dimer < 100 ng/mL (100-400) L 03/25/19 07:45 Sodium 139 mEq/L (136-145) 03/27/19 04:45 Potassium 3.3 mEq/L (3.5-5.1) L 03/27/19 04:45 Chloride 106 mEq/L (98-107) 03/27/19 04:45 Carbon Dioxide 25.2 mEq/L (21.0-31.0) 03/27/19 04:45 Anion Gap 11.1 (7.0-16.0) 03/27/19 04:45 BUN 16 mg/dL (7-25) 03/27/19 04:45 Creatinine 0.9 mg/dL (0.7-1.3) 03/27/19 04:45 Est GFR ( Amer) > 60.0 ml/min (>90) 03/27/19 04:45 Est GFR (Non-Af Amer) > 60.0 ml/min 03/27/19 04:45 BUN/Creatinine Ratio 17.8 03/27/19 04:45 Glucose 110 mg/dL (70-105) H 03/27/19 04:45 POC Glucose 120 MG/DL (70 - 105) H 03/25/19 09:25 Calcium 8.9 mg/dL (8.6-10.3) 03/27/19 04:45 Total Bilirubin 0.5 mg/dL (0.3-1.0) 03/27/19 04:45 AST 15 U/L (13-39) 03/27/19 04:45 ALT 30 U/L (7-52) 03/27/19 04:45 Alkaline Phosphatase 65 U/L (34-104) 03/27/19 04:45 Creatine Kinase 50 U/L (30-223) 03/25/19 07:45 Troponin I < 0.01 ng/mL (0.01-0.05) L 03/26/19 04:20 B-Natriuretic Peptide 7.2 pg/mL (5.0-100.0) 03/25/19 07:45 Total Protein 6.4 gm/dL (6.0-8.3) 03/27/19 04:45 Albumin 4.0 gm/dL (4.2-5.5) L 03/27/19 04:45 Globulin 2.4 gm/dL 03/27/19 04:45 Albumin/Globulin Ratio 1.7 (1.0-1.8) 03/27/19 04:45 Triglycerides 133 mg/dL (<150) 03/25/19 07:45 Cholesterol 139 mg/dL (<200) 03/25/19 07:45 LDL Cholesterol Direct 83 mg/dL (75-193) 03/25/19 07:45 HDL Cholesterol 35 mg/dL (23-92) 03/25/19 07:45 TSH 0.73 uIU/ml (0.34-5.60) 03/27/19 04:45 Urine Source RANDOM 03/25/19 09:30 Urine Color YELLOW 03/25/19 09:30 Urine Clarity CLEAR (CLEAR) 03/25/19 09:30 Urine pH 6.0 (4.6 - 8.0) 03/25/19 09:30 Ur Specific [place] 1.015 (1.005-1.030) 03/25/19 09:30 Urine Protein NEGATIVE mg/dL (NEGATIVE) 03/25/19 09:30 Urine Glucose (UA) NEGATIVE mg/dL (NEGATIVE) 03/25/19 09:30 Urine Ketones NEGATIVE mg/dL (NEGATIVE) 03/25/19 09:30 Urine Blood NEGATIVE (NEGATIVE) 03/25/19 09:30 Urine Nitrate NEGATIVE (NEGATIVE) 03/25/19 09:30 Urine Bilirubin NEGATIVE (NEGATIVE) 03/25/19 09:30 Urine Urobilinogen 0.2 E.U./dL (0.2 - 1.0) 03/25/19 09:30 Ur Leukocyte Esterase NEGATIVE (NEGATIVE) 03/25/19 09:30 Urine RBC NONE SEEN /hpf (0-5) 03/25/19 09:30 Urine WBC 0-2 /hpf (0-5) 03/25/19 09:30 Ur Epithelial Cells NONE SEEN /lpf (FEW) 03/25/19 09:30 Urine Bacteria FEW /hpf (NONE SEEN) 03/25/19 09:30 - Physical Exam Vitals and I&O: Vital Signs Temp 98.2 F 03/27/19 12:00 Pulse 81 03/27/19 13:25 Resp 18 03/27/19 12:00 BP 131/83 03/27/19 13:25 Pulse Ox 97 03/27/19 12:00 Intake & Output 03/26/19 03/27/19 03/27/19 18:59 06:59 18:59 Intake Total 700 1200 Output Total 900 Balance 700 300 Weight (lbs) 76.204 kg 71.849 kg Intake: Intake, IV Amount 1000 Sodium Chloride 0.9% 1, 1000 000 ml @ 70 mls/hr IV . [id number] [facility] Rx#:[id number] Oral 700 200 Output: Urine 900 Other: # Voids 3 # Bowel Movements 0 0 Weight Source Bedscale Bedscale Active Medications: Current Medications Acetaminophen (Tylenol) 650 mg PO Q4H PRN PRN Reason: Pain (Mild) Stop: 05/25/19 02:58 Last Admin: 03/26/19 03:09 Dose: 650 mg Atorvastatin Calcium (Lipitor) 40 mg PO DAILY [facility] Stop: 05/24/19 10:29 Last Admin: 03/27/19 08:19 Dose: 40 mg Bisacodyl (Dulcolax 5 Mg Ec Tab) 5 mg PO DAILY [facility] Stop: 05/26/19 08:59 Last Admin: 03/27/19 09:22 Dose: 5 mg Carvedilol (Coreg) 12.5 mg PO BID [facility] Stop: 05/24/19 10:29 Last Admin: 03/27/19 08:21 Dose: 12.5 mg Docusate Sodium (Colace) 100 mg PO BID [facility] Stop: 05/25/19 20:14 Last Admin: 03/27/19 08:19 Dose: 100 mg Hydralazine HCl (Apresoline) 50 mg PO Q8HR [facility] Stop: 05/24/19 10:29 Last Admin: 03/27/19 13:25 Dose: 50 mg Sodium Chloride (Nacl 0.9%) 1,000 mls @ 70 mls/hr IV .[id number] [facility] Stop: 05/24/19 09:47 Last Admin: 03/27/19 05:54 Dose: Not Given Nifedipine (Procardia Xl) 60 mg PO BID [facility] Stop: 05/24/19 16:59 Last Admin: 03/27/19 08:20 Dose: 60 mg Potassium Chloride (Klor-Con) 40 meq PO DAILY [facility] Stop: 05/25/19 08:59 Last Admin: 03/27/19 08:20 Dose: 40 meq General: Alert, No acute distress HEENT: Mucous membr. moist/pink Neck: Supple, JVD, +2 carotid pulse wo bruit Cardiovascular: Regular rate Lungs: Clear to auscultation, Normal air movement Abdomen: Bowel sounds, Soft, Other (no organomegaly) Extremities: Pulses, Other (General muiscle weakness) Neurological: Other (Non ambulatory at this moment, General muscle weakness.) Skin: Other (warm and dry) Psych/Mental Status: Mental status NL Assessment/Plan - Assessment Assessment: Chest pain unlikely coronary artery disease troponin level normal Hypokalemia Hypertension CVA with intracerebral bleed 02/15/2019 Hyperlipidemia - Plan Plan: We will get echocardiogram repeat troponin level Okay to discharge
--- NOTE | 2019-03-27 17:28 | Cardiology ---
03/26/[address] Rolon. M-MODE ECHOCARDIOGRAM: Mitral valve, anterior leaflet of mitral valve shows normal excursion, EF velocity. Posterior leaflet of the mitral valve shows normal excursion. Left ventricular posterior wall shows increased thickness, normal excursion. Interventricular septum shows increased thickness, normal excursion, hypertrophy of the left ventricle, ejection fraction 75%. Left atrium normal. Aortic root shows normal dimension, normal excursion of aortic leaflets. CONCLUSION: Hypertrophy of the left ventricle, ejection fraction 75%. 2D ECHO: Long axis view showed normal sized left ventricle with hypertrophy of the left ventricle. Left atrium normal. Aortic root shows normal dimension, normal excursion of aortic leaflets. Short axis view of mitral valve normal. Short axis view of aortic valve normal. Apical four chamber view showed normal sized left ventricle, left atrium, right ventricle, right atrium, tricuspid and mitral valve. Ejection fraction 75%. CONCLUSION: Hypertrophy of the left ventricle, ejection fraction 75%. Doppler study shows mild mitral regurgitation, trace tricuspid regurgitation, right ventricular systolic pressure 21 mmHg. JOB# [id number]
== END 2019-03-27 15:50 | disposition home health service (06) | DRG 198 ==
LOC: ER 07:30 → TELE 08:35
PROVIDERS: ADMIT General Practice; ATTEND General Practice
DX: R07.89 Other chest pain (principal); I20.0 Unstable angina; I11.0 Hypertensive heart disease with heart failure; I50.9 Heart failure, unspecified; E86.0 Dehydration; E78.5 Hyperlipidemia, unspecified; E87.6 Hypokalemia; Z98.890 Other specified postprocedural states; Z82.49 Family history of ischemic heart disease and other diseases of the circulatory system; Z86.73 Personal history of transient ischemic attack (TIA), and cerebral infarction without residual deficits
CPT/HCPCS: 36415-UA; 70450-TC; 71045-TC; 80053-TC; 80061-TC; 81001-TC; 82550-TC; 82948-90; 83880-TC; 84443-TC; 84484-TC; 85025-TC; 85379-TC; 85610-TC; 93005; 94760; 97530; J7030; X3904; Z7610